=== PATIENT | male | born 1975 | race Caucasian/White ===

== ENCOUNTER 2019-10-30 11:39 | Inpatient (IN) | payer OTHER ==
[~2019-10-30] VITALS: Ht 167.6 cm; Wt 83.6 kg
[2019-10-30 11:46] VITALS: BP 146/84
[2019-10-30 12:40] LABS: BASO % 0.1 % (0.0-1.0); EOS % 0.3 % (1.0-4.0); HEMATOCRIT 45.8 % (42.0-52.0); HEMOGLOBIN 14.9 g/dl (14.0-18.0); MEAN CELL VOLUME 86.1 fl (80.0-94.0); MEAN CORPUSCULAR HGB CONC 32.5 g/dl (33.0-37.0); MEAN PLATELET VOLUME 9.4 fl (9.6-12.3); MONO # 1.2 10*3/uL (0.1-1.0); MONO % 8.7 % (3.0-9.0); NEUT # 10.8 10*3/uL (2.3-7.9); NEUT % 76.5 % (47.0-73.0); PLATELET COUNT AUTOMATED 190 10*3/uL (130-400); RED BLOOD COUNT 5.32 10*6/uL (4.50-5.90); RED CELL DISTRI WIDTH 11.9 % (0-14.5); WHITE BLOOD COUNT 14.1 10*3/uL (4.8-10.8)
[2019-10-30 12:56] LABS: ALBUMIN 3.3 gm/dl (3.1-4.5); ALKALINE PHOSPHATASE 96 U/L (45-117); BUN 18 mg/dl (7-24); CHLORIDE 110 mmol/L (98-107); CREATININE 1.13 mg/dL (0.70-1.30); POTASSIUM 3.7 mmol/L (3.5-5.1); SGOT/AST 18 IU/L (3-35); SGPT/ALT 34 U/L (12-78); SODIUM 141 mmol/L (136-145); TOTAL PROTEIN 7.5 gm/dL (6.4-8.2)
[2019-10-30] MEDS ORDERED: AVALIDE 300-121 EACH PO (13:41)
[2019-10-30] MEDS ORDERED: KEFLEX 500 MG E2 CAP PO (13:41)
--- NOTE | 2019-10-30 13:55 | NUR ---
FLORA ELKINS [id number] Please refer to the physician's history and physical for past medical history, comorbid conditions, and allergies. Diagnosis: CELLULITIS AND ABSCESS OF UPPER EXTREMITY Lincoln Score: , WOUND DESCRIPTIONS: Wound Number: 1 Location of the wound: LEFT FOREARM Type of wound: INSECT BITE Thickness: Full Size: 0.5cm X 0.7cm X <0.1cm Tunneling: NONE Undermining: NONE Sinus Tract: NONE Presence of Exudate: NONE Amount: None Color: Brown, Red Odor: None Periwound Skin Appearance: Firmness, Erythema, Hot Wound edges: CLOSED. Pain (associated with wound): TENDER TO TOUCH. PATIENT STATES THAT HE CANNOT BEND LEFT ARM WITHOUT PAIN. How does patient state this happened? PATIENT STATES THAT HE WAS STACKING WOOD AND WAS CARRYING WOOD IN THIS ARM ON TUESDAY. PATIENT STATES HE WAS BIT BY "SOMETHING." PATIENT WAS SEEN AT [facility] IN [facility] ON Tuesday10/29/19 WHERE HE WAS GIVEN ORAL ANTIBIOTICS BUT UNSURE OF NAME. PATIENT STATES THAT HE HAS BEEN USING WARM COMPRESSES AND THE AREA HAS NEVER HAD DRAINAGE. Surface the patient is resting on: Isoflex SKIN PREVENTION RECOMMENDATION: 1. Pressure redistribution support surface as appropriate 2. Elevate heels 3. Remove boots/TEDS every shift and reapply 4. Head of bed 30 degrees as tolerated 5. Assess nutrition and hydration 6. Manage moisture 7. Avoid the use of containment devices while in bed 8. Use absorptive products on surfaces limit layers of linens on bed 9. Turn and reposition every 1-2 hours in bed and every 1 hour in chair as tolerated 10. Weight shifts every 15 minutes while up in chair 11. Offloading with pillows or device to keep heels elevated off bed 12. Monitor skin at least every shift 13. Inspect under medical devices twice a day WOUND TREATMENT RECOMMENDATIONS: CONSULT SURGERY FOR POSIBLE I&D. WARM COMPRESSES FOUR TIMES DAILY TOLERATED.
[2019-10-30 14:00] VITALS: BP 140/80
[2019-10-30 14:30] VITALS: BP 141/76
--- NOTE | 2019-10-30 14:30 | NUR ---
Time: 1429 A 49 year old MALE admitted to 5E under services of CEDRICK REYES DO. Pt. arrived via stretcher from ER. Chief complaint: LEFT ARM INSECT BITE AREA INCREASING IN PAIN, REDNESS AND SWELLING SINCE TUESDAY. DUONG TRINIDAD
[2019-10-30 14:45] VITALS: BP 141/76
[2019-10-30 16:00] VITALS: BP 133/71
--- NOTE | 2019-10-30 17:42 | NUR ---
MEDICATED WITH PRN PO NORCO FOR C/O LEFT ARM PAIN.
--- NOTE | 2019-10-30 18:13 | NUR ---
PRN PO NORCO SOMEWHAT EFFECTIVE, PER PATIENT.
[2019-10-30 20:00] VITALS: BP 125/77
--- NOTE | 2019-10-30 23:10 | NUR ---
NORCO GIVEN PER PATIENT REQUEST FOR COMPLAINTS OF PAIN RATED 7/10 IN HIS LEFT ARM. WILL ASSESS EFFECTIVENESS.
[2019-10-31] VITALS: BP 147/90
--- NOTE | 2019-10-31 06:32 | NUR ---
NORCO GIVEN PER PATIENT REQUEST FOR COMPLAINTS OF PAIN RATED 7/10 IN LEFT ARM. WILL ASSESS EFFECTIVENESS.
[2019-10-31 06:40] LABS: BASO % 0.2 % (0.0-1.0); EOS # 0.1 10*3/uL (0.0-0.4); EOS % 0.7 % (1.0-4.0); HEMATOCRIT 39.9 % (42.0-52.0); HEMOGLOBIN 13.2 g/dl (14.0-18.0); LYMPH % 16.4 % (27.0-41.0); MEAN CELL VOLUME 85.6 fl (80.0-94.0); MEAN CORPUSCULAR HGB 28.3 pg (27.0-31.0); MEAN CORPUSCULAR HGB CONC 33.1 g/dl (33.0-37.0); MEAN PLATELET VOLUME 9.6 fl (9.6-12.3); MONO # 0.9 10*3/uL (0.1-1.0); MONO % 7.6 % (3.0-9.0); NEUT # 9.1 10*3/uL (2.3-7.9); NEUT % 74.5 % (47.0-73.0); PLATELET COUNT AUTOMATED 180 10*3/uL (130-400); RED BLOOD COUNT 4.66 10*6/uL (4.50-5.90); RED CELL DISTRI WIDTH 11.9 % (0-14.5); WHITE BLOOD COUNT 12.3 10*3/uL (4.8-10.8)
[2019-10-31 06:53] LABS: BUN 14 mg/dl (7-24); CHLORIDE 110 mmol/L (98-107); CHOLESTEROL 136 mg/dL (<200); CREATININE 1.12 mg/dL (0.70-1.30); PHOSPHOROUS 2.3 mg/dL (2.5-4.9); POTASSIUM 3.1 mmol/L (3.5-5.1); SODIUM 142 mmol/L (136-145); TRIGLYCERIDES 181 mg/dl (<150); VLDL CHOLESTEROL 36 mg/dL (6-40)
[2019-10-31 07:05] LABS: HDL CHOLESTEROL 45 mg/dl (40-60); LDL CHOLESTEROL 55 mg/dL (9-159)
--- NOTE | 2019-10-31 07:45 | NUR ---
PER PATIENT, NORCO NOT EFFECTIVE FOR LEFT ARM PAIN, BUT DOES NOT WANT TO TRY THE IV MORPHINE THAT IS ORDERED PRN FOR HIM.
[2019-10-31 08:00] VITALS: BP 122/76
[2019-10-31 08:03] LABS: VITAMIN D, 25-HYDROXY 17.4 ng/mL (30-100)
--- NOTE | 2019-10-31 08:19 | NUR ---
Dr. Pinzon notified of wound care recommendations.
[2019-10-31 12:00] VITALS: BP 125/78
--- NOTE | 2019-10-31 12:52 | NUR ---
MEDICATED WITH PRN PO NORCO FOR LEFT ARM PAIN. WARM COMPRESS IN PLACE ORDERED.
--- NOTE | 2019-10-31 15:16 | NUR ---
Business Rules Analyst in to talk to patient. Patient states lives at HOME with ALONE. There are NO steps in the home. Physician: NAVNEET PENN Pharmacy: [facility] health services: NONE Patient's level of ADLs: INDEPENDENT Patient has working utilities: YES DME: NONE Follow-up physician's appointment after d/c: WILL BE MADE BY HOSPITALIST NURSE DIRECTOR ON DISCHARGE Does patient want to access PORTAL?: NO Discharge plan PT LIVES AT HOME ALONE AND IS INDEPENDENT IN HIS CARE. DENIES HE WILL HAVE ANY NEEDS ON DISCHARGE. PLAN IS TO RETURN HOME. WILL CONTINUE TO FOLLOW. PT STATES CAR IS IN PARKING LOT.. ARTEMIO DONNELLY
[2019-10-31 16:00] VITALS: BP 127/71
--- NOTE | 2019-10-31 17:10 | NUR ---
SCABBED AREA TO LEFT ELBOW AREA OPENED, DRAINING SEROUSANGUINOUS FLUID MIXED WITH PURULENT DRAINAGE. DR. SCOTT NOTIFIED, CULTURE SWAB OBTAINED, WILL SEND TO [facility] IF ORDER IS OBTAINED TO CULTURE THE WOUND.
--- NOTE | 2019-10-31 18:08 | NUR ---
MEDICATED WITH PRN IV MORPHINE FOR LEFT ARM PAIN.
--- NOTE | 2019-10-31 18:13 | NUR ---
WOUND C/S SENT PER ORDER.
[2019-10-31 20:00] VITALS: BP 126/68
--- NOTE | 2019-10-31 21:40 | NUR ---
PATIENT MEDICATED SLOWLY WITH MORPHINE 2 MG IV PER PRN ORDER FOR C/O L. ARM PAIN. RATED PAIN A 6/10 WITH 10 BEING THE WORST. SEE EMAR. REINFORCED USE OF CALL LIGHT.
--- NOTE | 2019-10-31 23:00 | NUR ---
PATIENT APPEARS TO BE SLEEPING. MEDICATION EFFECTIVE
[2019-11-01] VITALS: BP 115/54
--- NOTE | 2019-11-01 00:17 | NUR ---
PATIENT MEDICATED WITH NORCO PER PATIENT REQUEST AND PRN ORDER FOR C/O LEFT ARM PAIN. RATED PAIN A 6/10 WITH 10 BEING THE WORST. SEE EMAR. REINFORCED USE OF CALL LIGHT
--- NOTE | 2019-11-01 02:00 | NUR ---
PATIENT RESTING QUIETLY. NO FURTHER C/O VOICED.
--- NOTE | 2019-11-01 03:25 | NUR ---
24 HR chart check completed.
--- NOTE | 2019-11-01 06:32 | NUR ---
PATIENT MEDICATED WITH NORCO FOR C/O L. GREAT TOE AND L. ELBOW PAIN. RATED PAIN A 8/10 WITH 10 BEING THE WORST. SEE EMAR. REINFORCED USE OF CALL LIGHT.
--- NOTE | 2019-11-01 06:42 | NUR ---
FLORA ELKINS [id number] Please refer to the physician's history and physical for past medical history, comorbid conditions, and allergies. Diagnosis: CELLULITIS AND ABSCESS OF UPPER EXTREMITY Lincoln Score: 22,LOW OR NO RISK WOUND DESCRIPTIONS: ( revisit per patient request ) Wound Number: 1 Location of the wound: left forearm Type of wound: insect bite Thickness: Full Size: 0.8cm x 0.7cm x 0.2cm Tunneling: none Undermining: none Sinus Tract: none Presence of Exudate: Purulent Amount: Light Color: Brown, yellow, red Odor: None Periwound Skin Appearance: Erythema past demarcation markings from admission, firmness, Edema and Hot to touch Wound edges: approximated Pain (associated with wound): very tender to touch How does patient state this happened? pt states he is unsure what he was bitten by on tuesday he stated even being on the iv antibiotics he is concerned because the redness and how hard it is getting worse even with that and is concerned about being discharged. he states the draiange started after the warm compresses that are being appilied. Surface the patient is resting on: Isoflex SKIN PREVENTION RECOMMENDATION: 1. Pressure redistribution support surface as appropriate 2. Elevate heels 3. Remove boots/TEDS every shift and reapply 4. Head of bed 30 degrees as tolerated 5. Assess nutrition and hydration 6. Manage moisture 7. Avoid the use of containment devices while in bed 8. Use absorptive products on surfaces limit layers of linens on bed 9. Turn and reposition every 1-2 hours in bed and every 1 hour in chair as tolerated 10. Weight shifts every 15 minutes while up in chair 11. Offloading with pillows or device to keep heels elevated off bed 12. Monitor skin at least every shift 13. Inspect under medical devices twice a day WOUND TREATMENT RECOMMENDATIONS: Consult surgery for possible I&D/debridement Continue warm compresses QID as tolerated Cultures are pending at this time Full thickness guidelines: Cleanse left forearm with nss and apply sureprep around the wound therahoney to wound bed and cover with dsd daily and prn for soiling. Patient states he is willing to care for this area at home once he is discharged and doesn't believe he needs to follow outpatient at this time.
[2019-11-01 08:00] VITALS: BP 114/65
[2019-11-01 09:41] LABS: BASO % 0.2 % (0.0-1.0); EOS # 0.1 10*3/uL (0.0-0.4); EOS % 1.1 % (1.0-4.0); HEMATOCRIT 43.9 % (42.0-52.0); HEMOGLOBIN 14.1 g/dl (14.0-18.0); LYMPH # 1.8 10*3/uL (1.3-4.4); LYMPH % 14.3 % (27.0-41.0); MEAN CELL VOLUME 86.2 fl (80.0-94.0); MEAN CORPUSCULAR HGB 27.7 pg (27.0-31.0); MEAN CORPUSCULAR HGB CONC 32.1 g/dl (33.0-37.0); MEAN PLATELET VOLUME 9.6 fl (9.6-12.3); MONO # 0.9 10*3/uL (0.1-1.0); MONO % 7.5 % (3.0-9.0); NEUT # 9.3 10*3/uL (2.3-7.9); NEUT % 76.3 % (47.0-73.0); RED BLOOD COUNT 5.09 10*6/uL (4.50-5.90); RED CELL DISTRI WIDTH 11.8 % (0-14.5); WHITE BLOOD COUNT 12.2 10*3/uL (4.8-10.8)
[2019-11-01 09:49] LABS: PLATELET COUNT AUTOMATED 248 10*3/uL (130-400)
--- NOTE | 2019-11-01 10:47 | NUR ---
Dr. Byrnes notified of wound care recommendations.
--- NOTE | 2019-11-01 11:56 | NUR ---
PT CONTINUES TO DENY NEEDS ON DISCHARGE. STATES HE WILL RETURN HOME WHEN MEDICALLY STABLE.
[2019-11-01 12:00] VITALS: BP 126/69
--- NOTE | 2019-11-01 12:26 | NUR ---
PT GIVEN MORHPINE AND PAIN SUBSIDED INSTANTLY. PT RESTING IN BED. VANC RUNNING NOTIFIED RADHA WOODS.
--- NOTE | 2019-11-01 12:39 | NUR ---
NORCO GIVEN FOR RIGHT FOOT PAIN. RADHA WOODS NOTIFIED
[2019-11-01 16:00] VITALS: BP 147/74
[2019-11-01 20:00] VITALS: BP 122/73
--- NOTE | 2019-11-01 21:40 | NUR ---
PATIENT MEDICATED WITH NORCO PER PRN ORDER AND PATIENT REQUEST FOR C/O L. ARM PAIN. RATED PAIN A 6/10 WITH 10 BEING THE WORST. SEE EMAR. REINFORCED USE OF CALL LIGHT
[2019-11-02] VITALS (8 sets, daily range): BP systolic 118–142; BP diastolic 76–94
--- NOTE | 2019-11-02 | NUR ---
PATIENT RESTING QUIETLY. NO FURTHER C/O VOICED.
--- NOTE | 2019-11-02 02:00 | NUR ---
PATIENT MEDICATED SLOWLY WITH MORPHINE 2 MG IV PER PRN ORDER FOR C/O L. ARM AND L. FOOT PAIN . RATING PAIN A 7-8/10 WITH 10 BEING THE WORST. SEE EMAR. REINFORCED USE OF CALL LIGHT.
--- NOTE | 2019-11-02 03:45 | NUR ---
PATIENT RESTING QUIETLY. NO FURTHER C/O VOICED.
--- NOTE | 2019-11-02 06:17 | NUR ---
PATIENT MEDICATED WITH MORPHINE 2 MG IV PER PRN ORDER FOR C/O L ARM AND LT FOOT PAIN. ALSO C/O L.KNEE STIFFNESS. RATED PAIN A 7-8/10 WITH 10 BEING THE WORST
[2019-11-02 06:50] LABS: BASO % 0.2 % (0.0-1.0); EOS # 0.2 10*3/uL (0.0-0.4); HEMATOCRIT 39.9 % (42.0-52.0); LYMPH # 2.2 10*3/uL (1.3-4.4); MEAN CELL VOLUME 85.3 fl (80.0-94.0); MEAN CORPUSCULAR HGB 27.8 pg (27.0-31.0); MEAN CORPUSCULAR HGB CONC 32.6 g/dl (33.0-37.0); MEAN PLATELET VOLUME 9.5 fl (9.6-12.3); MONO # 0.8 10*3/uL (0.1-1.0); MONO % 7.7 % (3.0-9.0); NEUT # 6.6 10*3/uL (2.3-7.9); NEUT % 67.5 % (47.0-73.0); PLATELET COUNT AUTOMATED 235 10*3/uL (130-400); RED BLOOD COUNT 4.68 10*6/uL (4.50-5.90); RED CELL DISTRI WIDTH 11.8 % (0-14.5); WHITE BLOOD COUNT 9.8 10*3/uL (4.8-10.8)
--- NOTE | 2019-11-02 07:00 | NUR ---
ARRIVED ON SHIFT, INTRODUCED TO PATIENT, WHITE BOARD UPDATED, BED IN LOW POSITIONS, WHEEL LOCKS ENGAGED, CALL LIGHT WITHIN REACH, NO NEEDS VOICED AT THIS TIME.
[2019-11-02 07:21] LABS: BUN 16 mg/dl (7-24); CHLORIDE 110 mmol/L (98-107); POTASSIUM 3.6 mmol/L (3.5-5.1); SODIUM 142 mmol/L (136-145)
--- NOTE | 2019-11-02 08:15 | NUR ---
Shift chart check completed.
--- NOTE | 2019-11-02 11:11 | NUR ---
PATIENT C/O LEFT GREAT TOE PAIN AND LEFT KNEE PAIN MEDICATED WITH NORCO ORDERED PRN FOR PAIN.
--- NOTE | 2019-11-02 12:53 | NUR ---
PATIENT REPORTS NO RELIEF FROM NORCO, REQUESTED MORPHINE, MEDICATED WITH 2MG OF MORPHINE ORDERED FOR C/O LEFT GREAT TOE RATES PAIN 10/10, LEFT KNEE 8/10 AND LEFT ARM WOUND 5/10.
--- NOTE | 2019-11-02 13:53 | NUR ---
PATIENT REPORTS GOOD RELIEF FROM MORPHINE GIVEN X 1 HOUR AGO PAIN DECREASED TO 3/10 OVER ALL, WITH IMPROVED MOVEMENT.
--- NOTE | 2019-11-02 20:30 | NUR ---
24 HR chart check completed.
[2019-11-03] VITALS: BP 128/83
--- NOTE | 2019-11-03 07:05 | NUR ---
ARRIVED ON SHIFT, INTRODUCED TO PATIENT, BED IN LOW POSITION, WHEEL LOCKS ENGAGED, CALL LIGHT WITHIN REACH, NO NEEDS VOICED AT THIS TIME. WHITE BOARD UPDATED.
--- NOTE | 2019-11-03 07:48 | NUR ---
Shift chart check completed.
[2019-11-03 08:00] VITALS: BP 131/82; BP 144/84
[2019-11-03] MEDS ORDERED: INDOMETHACIN50 MG PO (11:09)
[2019-11-03] MEDS ORDERED: SEPTDS PO (11:09)
[2019-11-03] MEDS ORDERED: NORCO 5-325 TA1 EACH PO (11:09)
[2019-11-03 12:00] VITALS: BP 126/70
--- NOTE | 2019-11-03 12:09 | NUR ---
Discharge instructions reviewed with patient/family. Patient receptive and verbalizes understanding. Follow-up care arranged. Written instructions given to patient/family. Reviewed how to change dressing to left arm, reviewed s/s of infection, reinforced importance of taking antibiotics untilo gone.Gave written norco perscription. IV removed, offered w/c for discharge, patient refused. JONELLE HAMPTON
== END 2019-11-03 12:21 | disposition home or self-care (01) | DRG 872 ==
LOC: ED 11:39 → EDHOLD 12:15 → 5E 12:15
PROVIDERS: Emergency Medicine; Internal Medicine; ADMIT Family Medicine
PROC: 0X9K0ZZ Drainage of Left Hand, Open Approach (ICD-10-PCS; principal; 2019-11-02)
DX: A41.9 Sepsis, unspecified organism (principal); L03.114 Cellulitis of left upper limb; L02.414 Cutaneous abscess of left upper limb; E83.41 Hypermagnesemia; R73.9 Hyperglycemia, unspecified; E87.8 Other disorders of electrolyte and fluid balance, not elsewhere classified; I10 Essential (primary) hypertension; B95.62 Methicillin resistant Staphylococcus aureus infection as the cause of diseases classified elsewhere; M10.9 Gout, unspecified; Z80.1 Family history of malignant neoplasm of trachea, bronchus and lung; Z79.899 Other long term (current) drug therapy

== ENCOUNTER 2019-11-06 10:03 | Emergency (ER) | payer OTHER ==
[~2019-11-06] VITALS: Ht 167.6 cm; Wt 83.5 kg
[~2019-11-06 10:03] MED LIST: AVALIDE 300-121 EACH PO; INDOMETHACIN50 MG PO; KEFLEX 500 MG E2 CAP PO; NORCO 5-325 TA1 EACH PO; SEPTDS PO
[2019-11-06] MEDS ORDERED: COLCHICINE0.6 M1 PO (10:42)
== END 2019-11-06 11:00 | disposition home or self-care (01) ==
LOC: ED 10:03
DX: M10.9 Gout, unspecified (principal); I10 Essential (primary) hypertension; Z79.899 Other long term (current) drug therapy

== ENCOUNTER 2019-11-29 00:38 | Emergency (ER) | payer OTHER ==
[~2019-11-29] VITALS: Ht 167.6 cm; Wt 83.9 kg
[~2019-11-29 00:38] MED LIST changes: +COLCHICINE0.6 M1 PO
[2019-11-29 06:39] LABS: BASO % 0.5 % (0.0-1.0); EOS # 0.1 10*3/uL (0.0-0.4); EOS % 1.4 % (1.0-4.0); HEMATOCRIT 46.9 % (42.0-52.0); HEMOGLOBIN 15.1 g/dl (14.0-18.0); LYMPH # 3.1 10*3/uL (1.3-4.4); LYMPH % 36.5 % (27.0-41.0); MEAN CELL VOLUME 86.9 fl (80.0-94.0); MEAN CORPUSCULAR HGB CONC 32.2 g/dl (33.0-37.0); MONO # 0.6 10*3/uL (0.1-1.0); MONO % 7.3 % (3.0-9.0); NEUT # 4.6 10*3/uL (2.3-7.9); NEUT % 53.9 % (47.0-73.0); PLATELET COUNT AUTOMATED 201 10*3/uL (130-400); RED CELL DISTRI WIDTH 12.8 % (0-14.5); WHITE BLOOD COUNT 8.5 10*3/uL (4.8-10.8)
[2019-11-29 06:55] LABS: ALBUMIN 3.5 gm/dl (3.1-4.5); ALKALINE PHOSPHATASE 83 U/L (45-117); BUN 19 mg/dl (7-24); CHLORIDE 112 mmol/L (98-107); POTASSIUM 4.1 mmol/L (3.5-5.1); SGOT/AST 22 IU/L (3-35); SGPT/ALT 30 U/L (12-78); SODIUM 145 mmol/L (136-145)
[2019-11-29 06:58] LABS: ACETAMINOPHEN (TYLENOL) < 5.0 ug/ml (10-30)
[2019-11-29 12:35] LABS: URINE AMPHETAMINES < 1000 (1000ng/ml); URINE BARBITURATES < 200 (200ng/ml); URINE BENZODIAZEPINES < 200 (200ng/ml); URINE CANNABINOIDS (THC) < 50 (50ng/ml); URINE COCAINE < 300 (300ng/ml); URINE METHADONE < 300 (300ng/ml); URINE OPIATES < 300 (300ng/ml)
[2019-11-29 12:36] LABS: URINE PHENCYCLIDINE < 25 (25ng/ml)
[2019-11-29 12:56] LABS: BILIRUBIN NEGATIVE (NEGATIVE); BLOOD TRACE-LYSED (NEGATIVE); CLARITY CLEAR (CLEAR); COLOR YELLOW (YELLOW); GLUCOSE NEGATIVE (NEGATIVE); KETONE NEGATIVE (NEGATIVE); LEUKO ESTERASE NEGATIVE (NEGATIVE); NITRITE NEGATIVE (NEGATIVE); SPECIFIC GRAVITY 1.025 (1.005-1.030); UROBILINOGEN 0.2 E.U./dl (0.2-1.0)
[2019-11-29 12:57] LABS: BACTERIA TRACE; MUCOUS TRACE
== END 2019-11-29 17:36 | disposition home or self-care (01) ==
LOC: ED 00:38
PROVIDERS: Emergency Medicine
DX: S00.211A Abrasion of right eyelid and periocular area, initial encounter (principal); F43.21 Adjustment disorder with depressed mood; R41.0 Disorientation, unspecified; F12.10 Cannabis abuse, uncomplicated; F10.920 Alcohol use, unspecified with intoxication, uncomplicated; I10 Essential (primary) hypertension; Z79.2 Long term (current) use of antibiotics; Z79.899 Other long term (current) drug therapy; V47.5XXA Car driver injured in collision with fixed or stationary object in traffic accident, initial encounter; Y93.I9 Activity, other involving external motion; Y92.488 Other paved roadways as the place of occurrence of the external cause; Y99.8 Other external cause status; Y90.8 Blood alcohol level of 240 mg/100 ml or more

== ENCOUNTER → 2021-03-27 | Outpatient (CLI) | payer OTHER | END | disposition home or self-care (01) | LOC: RAD 11:59 | PROVIDERS: ATTEND Nurse Practitioner Adult Health | DX: M25.511 Pain in right shoulder (principal); M25.521 Pain in right elbow ==

== ENCOUNTER 2022-01-31 07:06 | Emergency (ER) | payer OTHER ==
[2022-01-31] MEDS ORDERED: CYCLOBENZAPRINE10 MG PO (08:07)
[2022-01-31] MEDS ORDERED: TYLENOL325 M1 PO (08:07)
[2022-01-31] MEDS ORDERED: MEDROL DOSEPAK4 MG PO (08:07)
== END 2022-01-31 08:31 | disposition home or self-care (01) ==
LOC: ED 07:06
DX: M54.12 Radiculopathy, cervical region (principal)

== ENCOUNTER 2024-03-15 20:03 | Emergency (ER) | payer MEDICAID ==
[~2024-03-15] VITALS: Ht 177.8 cm; Wt 113.4 kg
[~2024-03-15 20:03] MED LIST changes: +CYCLOBENZAPRINE10 MG PO; +MEDROL DOSEPAK4 MG PO; +TYLENOL325 M1 PO
[2024-03-15] MEDS ORDERED: SODIUM CHLORIDE 0.9% 1,000 ML IV ONE (20:05)
[2024-03-15] MEDS ORDERED: Metoprolol Tartrate 5 MG/5 ML VIAL IV ONE (20:10)
[2024-03-15] MEDS ORDERED: Thiamine 200 MG/2 ML VIAL IV ONE (20:10)
[2024-03-15 20:32] LABS: BASO # 0.1 10*3/uL (0.0-0.1); BASO % 0.6 % (0.0-1.0); EOS # 0.2 10*3/uL (0.0-0.4); EOS % 1.5 % (1.0-4.0); HEMATOCRIT 57.2 % (42.0-52.0); LYMPH # 3.3 10*3/uL (1.3-4.4); LYMPH % 31.1 % (27.0-41.0); MEAN CELL VOLUME 82.7 fl (80.0-94.0); MEAN CORPUSCULAR HGB 27.2 pg (27.0-31.0); MEAN CORPUSCULAR HGB CONC 32.9 g/dl (33.0-37.0); MEAN PLATELET VOLUME 9.9 fl (9.6-12.3); MONO # 0.7 10*3/uL (0.1-1.0); MONO % 6.8 % (3.0-9.0); NEUT # 6.3 10*3/uL (2.3-7.9); NEUT % 58.7 % (47.0-73.0); PLATELET COUNT AUTOMATED 248 10*3/uL (130-400); RED BLOOD COUNT 6.92 10*6/uL (4.50-5.90); RED CELL DISTRI WIDTH 17.2 % (0-14.5); WHITE BLOOD COUNT 10.8 10*3/uL (4.8-10.8)
[2024-03-15 20:43] LABS: ACT PARTIAL THROMBO TIME 22.5 SECONDS (20.0-32.1)
[2024-03-15 20:51] LABS: ALKALINE PHOSPHATASE 56 U/L (46-116); BUN 21 mg/dl (9-23); CHLORIDE 104 mmol/L (98-107); ETHYL ALCOHOL 4.9 mg/dl (<3); LIPASE 44 U/L (12-53); POTASSIUM 4.1 mmol/L (3.4-5.1); SGPT/ALT 137 U/L (5-49)
[2024-03-15 21:29] LABS: BILIRUBIN Negative (Negative); BLOOD 1+ (Negative); CLARITY Clear (Clear); COLOR Yellow (Yellow); GLUCOSE Negative (Negative); KETONE Trace (Negative); LEUKO ESTERASE Negative (Negative); NITRITE Negative (Negative); PH 5.5 (4.5-8.0); SPECIFIC GRAVITY 1.025 (1.001-1.030)
[2024-03-15 21:37] LABS: URINE AMPHETAMINES Negative (1000ng/ml); URINE BARBITURATES Negative (200ng/ml); URINE BENZODIAZEPINES Negative (200ng/ml); URINE CANNABINOIDS (THC) Negative (50ng/ml); URINE COCAINE Negative (300ng/ml); URINE METHADONE Negative (300ng/ml); URINE OPIATES Negative (300ng/ml); URINE PHENCYCLIDINE Negative (25ng/ml)
[2024-03-15 22:00] LABS: BACTERIA 1+; MUCOUS 1+
== END 2024-03-15 23:03 | disposition left against medical advice (07) ==
LOC: ED 20:03
PROVIDERS: Internal Medicine
DX: I21.4 Non-ST elevation (NSTEMI) myocardial infarction (principal); I48.20 Chronic atrial fibrillation, unspecified; E87.20 Acidosis, unspecified; Z53.29 Procedure and treatment not carried out because of patient's decision for other reasons; Z79.899 Other long term (current) drug therapy; Z79.2 Long term (current) use of antibiotics; Z98.890 Other specified postprocedural states